=== PATIENT | male | born 1995 | race Caucasian/White ===

== ENCOUNTER 2023-02-28 22:13 | Emergency (ER) | payer BC, SELFPAY ==
[2023-02-28 22:18] VITALS: BP 138/92; PULSE 78; RESP 18; TEMP 36.7; O2SAT 99
[2023-03-01 02:27] VITALS: BP 137/86; PULSE 96; RESP 16; O2SAT 99
--- NOTE | 2023-03-01 02:55 | ED.GENADULT ---
HPI - General Adult General Chief complaint: Dental/Oral Stated complaint: toothache Time Seen by Provider: 03/01/23 02:45 History of Present Illness HPI narrative: Patient is a 27-year-old gentleman who presents to the emergency department with chief complaint of dental pain. Patient reports that he had a tooth that disintegrated in his posterior right mandible patient reports that the area has become tender reports that he has not been able to see a dentist and reports has not been able to get comfortable this evening. The patient reports that there is no trismus denies shortness of breath Related Data Allergies Allergy/AdvReac Type Severity Reaction Status Date / Time No Known Allergies Allergy Verified 03/01/23 02:28 Review of Systems Review of Systems: A 10 system review of systems was completed on the patient and is negative except for what is stated in the HPI. Nursing and ancillary documentation was reviewed. Exam Narrative: GENERAL: Well-appearing, well-nourished, and in no acute distress. HEAD: Normocephalic, atraumatic. EYES: PERRLA and EOMI. ENT: Nares clear, no rhinorrhea or epistaxis. Mucous membranes moist. The right posterior molar is degraded and there is erythema and tenderness NECK: Supple. CHEST: Clear to auscultation. No respiratory distress. HEART: Regular rate and rhythm. No murmur heard. Normal peripheral pulses. ABDOMEN: Soft, nontender, nondistended, normal active bowel sounds. EXTREMITIES: Normal range of motion. No edema. SKIN: Warm, dry, no rash. NEURO: No focal deficits. Alert and oriented x3. PSYCH: Normal mood and affect. Course Vital Signs Vital signs: Vital Signs Temperature 36.7 C 02/28/23 22:18 Pulse Rate 78 02/28/23 22:18 Respiratory Rate 18 02/28/23 22:18 Blood Pressure 138/92 H 02/28/23 22:18 Pulse Oximetry 99 02/28/23 22:18 Oxygen Delivery Room Air 02/28/23 22:18 Temperature 36.7 C 02/28/23 22:18 Pulse Rate 96 03/01/23 02:27 Respiratory Rate 16 03/01/23 02:27 Blood Pressure 137/86 03/01/23 02:27 Pulse Oximetry 99 03/01/23 02:27 Oxygen Delivery Room Air 02/28/23 22:18 Medical Decision Making MDM Narrative Medical decision making narrative: Differential diagnosis includes odontalgia, dental abscess. The patient is currently not showing signs of trench mouth no signs of Ludewig's angina. The patient has no trismus and no airway compromise. The patient was started on oral antibiotics given a prescription for anti-inflammatories the patient will be given a single dose of [place] in the emergency department to allow for additional pain control Vital Signs Vital Signs: Vital Signs Temperature 36.7 C 02/28/23 22:18 Pulse Rate 78 02/28/23 22:18 Respiratory Rate 18 02/28/23 22:18 Blood Pressure 138/92 H 02/28/23 22:18 Pulse Oximetry 99 02/28/23 22:18 Oxygen Delivery Room Air 02/28/23 22:18 Temperature 36.7 C 02/28/23 22:18 Pulse Rate 96 03/01/23 02:27 Respiratory Rate 16 03/01/23 02:27 Blood Pressure 137/86 03/01/23 02:27 Pulse Oximetry 99 03/01/23 02:27 Oxygen Delivery Room Air 02/28/23 22:18 Discharge Plan Discharge Clinical Impression: Dental abscess Patient Disposition: Home, Self-Care Condition: Stable Instructions: Antibiotic Form, Dental Abscess (ED) Prescriptions: New amoxicillin 500 mg capsule 500 mg PO Q12H Qty: 20 0RF ibuprofen 800 mg tablet 800 mg PO TID PRN (Reason: pain) Qty: 30 0RF Follow-up/Referrals: Felipe Wade MD [Physician] - PHYSICIAN,QU[employer] SUPERVISOR [Primary Care Provider] - Time of Disposition: 03:02
[2023-03-01] MEDS: AMOXICILLIN 500 MG CAPSULE PO (03:14)
[2023-03-01] MEDS: HYDROcodone/acetaminophen (*CRX) 5-325 MG TABLET 1 TAB PO (03:14)
== END 2023-03-01 03:34 | disposition home or self-care (01) ==
PROVIDERS: Emergency Provider Emergency Medicine
DX: K04.7 Periapical abscess without sinus (principal)
CPT/HCPCS: 99283; A9270